=== PATIENT | female | born 1980 | race Caucasian/White ===

== ENCOUNTER 2016-12-06 07:14 | Emergency (ER) ==
[2016-12-06 07:24] VITALS: BP 152/102
--- NOTE | 2016-12-06 08:34 | Diag Imaging Result Document ---
PROCEDURE NAME: KUB ABDOMEN - 12/06/2016 KUB: INDICATION: Pain. COMPARISON: 04/11/2015. FINDINGS: There are faint radiopacities projecting over the right kidney. There is a right lower quadrant ostomy. No evidence for bowel obstruction. The left pelvic calcifications and left mid abdominal calcification are no longer present. IMPRESSION: Right nephrolithiasis.
[2016-12-06 08:39] LABS: URINE CULTURE PL NEEDED? NO; URINE SOURCE CLEAN CATCH
[2016-12-06 08:45] LABS: BILIRUBIN URINE NEGATIVE (NEGATIVE); CLARITY SLIGHTLY CLOUDY (CLEAR); COLOR YELLOW; GLUCOSE URINE NEGATIVE (NEGATIVE); URINE EPITHELIAL CELLS <10 /HPF (<10); URINE RBC 20-40 /HPF (<10); URINE WBC <10 /HPF (<10)
[2016-12-06 08:46] LABS: BLOOD URINE 4+ (NEGATIVE); LEUKOCYTES URINE 1+ (NEGATIVE); NITRITE URINE NEGATIVE (NEGATIVE); PROTEIN URINE TRACE mg/dL (NEGATIVE); SP GRAVITY URINE 1.025; UROBILINOGEN URINE NORMAL
[2016-12-06 08:47] LABS: MANUAL DIFF NEEDED? NO
[2016-12-06 08:49] LABS: BASO% 0.2 % (0.0-0.8); EOS# 0.07 X1000 (0.0-0.7); EOS% 0.7 % (0.0-10.0); HEMATOCRIT 35.8 % (37.0-47.0); HEMOGLOBIN 12.3 g/dL (12.0-16.0); IMM GRAN# 0.02 X1000 (0.0-0.04); IMM GRAN% 0.2 % (0.0-0.5); LYMPH# 1.02 X1000 (1.2-3.4); LYMPH% 9.9 % (20.5-51.1); MCH 31.6 PG (27-31); MCHC 34.4 g/dL (33-37); MONO# 0.57 X1000 (0.11-0.59); MONO% 5.5 % (1.7-9.3); MPV 10.5 FL (7.4-10.4); NEUT% 83.5 % (42.2-75.2); PLT 129 X1000 (130-400); RBC 3.89 XMIL (4.2-5.4)
[2016-12-06 09:11] LABS: AGAP 16; AMYLASE 64 U/L (20-200); BUN 19 mg/dL (8-22); CALCIUM 9.4 mg/dL (8.8-10.2); CHLORIDE 100 mmol/L (98-107); COSMO 273; GOT 25 U/L (10-30); LIPASE 21 U/L (13-60); POTASSIUM 3.9 mmol/L (3.5-5.1); SODIUM 135 mmol/L (136-145); TCO2 20 mmol/L (25-35); TOTAL PROTEIN 7.7 g/dL (6.3-8.3)
[2016-12-06 09:36] LABS: ALBUMIN 4.3 g/dL (3.5-5.0); ALKALINE PHOSPHATASE 115 U/L (32-104); GPT 16 U/L (10-36)
--- NOTE | 2016-12-06 09:55 | PROVIDER DOCUMENTATION ---
HPI-Abdominal Pain/GI Problem - General Source: patient - History of Present Illness-ABD Nature of Presenting Problems: Pt is 36 y/o F presents to the ED with abdominal pain. Pt states she has Crohn' s disease. Pt states she is not suppose to eat nuts and she did. Pt states having cramping this am. Pt states N/V Abdominal Pain Onset Location: reports: generalized abdomen Pain Radiation: reports: no radiation Quality of Pain: reports: aching Onset/Duration: reports: this morning Timing: reports: still present, intermittent Activities at Onset: reports: light activity Exposure to sick contacts?: No Modifying Factors: improves with: nothing Associated Symptoms: reports: nausea, vomiting. denies: anxiety, arm pain, back /neck pain, chest pain, constipation, cough, diaphoresis, diarrhea, dizziness, EENT symptoms, fatigue, fever/chills, genitourinary problems, headaches, heartburn, joint pain, loss of appetite, malaise, muscle aches, sinus congestion /drainage, rash, seizure, shortness of breath, sensory/motor loss, pain with inspiration, swelling/mass in abdomen, syncope, weakness, trouble walking Last BM: unsure Dark Stools Present?: reports: none noticed Rectal Bleeding: reports: none Rectal Pain: reports: none # of Vomiting Episodes: 4 Emesis Description: reports: clear Bruising or Bleeding Gums?: No Similar Symptoms Previously?: Yes Recently seen or treated by another doctor?: No <Vika Cintron - Last Filed: 12/06/16 09:51> <Arnlufo Mathews I - Last Filed: 12/06/16 09:57> - General Chief Complaint: Abdominal Pain Stated Complaint: BOWEL OBSTRUCTION Time Seen by Provider: 12/06/16 07:50 Allergies/Adverse Reactions: Patient Allergies Allergy/AdvReac Type Severity Reaction Status Date / Time amoxicillin [Amoxicillin] Allergy Intermediate NAUSEA/VOMI Verified 12/06/16 07: 21 TING amoxicillin trihydrate * Allergy Intermediate NAUSEA/VOMI Verified 12/06/16 07: 21 [From Augmentin] TING potassium clavulanate * Allergy Intermediate NAUSEA/VOMI Verified 12/06/16 07:21 [From Augmentin] TING diphenhydramine HCl * Allergy Unknown Verified 12/06/16 07:21 [From Benadryl] levofloxacin [From Levaquin] Allergy HIVES Verified 12/06/16 07:21 Home Medications: Home Medication List Medication Instructions Recorded Confirmed Last Taken Type Escitalopram [Lexapro] 20 mg PO QHS 08/08/13 12/06/16 09/25/15 22:30 History Trazodone [Desyrel] 150 mg PO QHS 08/08/13 12/06/16 09/25/15 22:30 History Review of Systems - Adult - REVIEW OF SYSTEMS - ADULT Constitutional: denies: chills, fever Eyes: denies: blurred vision, double vision, eye pain Ears, Nose, Mouth & Throat: denies: ear pain, nose pain, throat pain Cardiovascular: denies: chest pain, heart murmur, irregular heart rate Respiratory: denies: cough, dyspnea on exertion, shortness of breath, wheezing Gastrointestinal: reports: abdominal pain, nausea, vomiting. denies: diarrhea Genitourinary: denies: dysuria, hematuria Musculoskeletal: denies: bone pain, joint pain, neck pain Integumentary: denies: hives, itching Neurological: denies: dizziness/vertigo, headache/migraines Psychiatric: reports: no symptoms reported Endocrine: reports: no symptoms reported Hematologic/Lymphatic: reports: no symptoms reported Allergic/Immunologic: reports: no symptoms reported All Other Systems: Reviewed and Negative <Vika Cintron - Sanjay Filed: 12/06/16 09:51> Past History - Adult - PAST MEDICAL HISTORY-ADULT Review of Records: reports: Nursing Assessment Review, Medications Reviewed, Social history reviewed & non-contributory. Major Childhood Illnesses: reports: denies history Cardiovascular: reports: denies history Respiratory: reports: denies history Gastrointestinal: reports: Crohn's, inflammatory bowel disease Obstetrical/Gynecological: reports: denies history Genitourinary: reports: kidney stones Musculoskeletal: reports: denies history Neurological: reports: denies history Psychiatric: reports: anxiety, depression Endocrine/Immune: reports: denies history Other Conditions: reports: denies history - PRIOR SURGERIES/PROCEDURES Surgical/Procedure History: reports: , other (lithotripsy, ileostomy) - IMMUNIZATION STATUS Childhood Immunizations: See Nurse Assessment Flu Vaccine: See Nurse Assessment - FAMILY HISTORY Family History: reviewed, not pertinent - SOCIAL HISTORY Smoking: denies Substance Use: denies Living Situation: family <Vika Cintron Filed: 12/06/16 09:51> Physical Exam-General - PHYSICAL EXAM-ADULT Initial Vital Signs Reviewed: Yes - CONSTITUTIONAL General Appearance: appears well, alert, no apparent distress - EYES Eyes: PERRL/EOMI, pink conjunctivae, fundi clear, no AV nicking - HEAD, EARS, NOSE, MOUTH & THROAT HENMT: normocephalic/atraumatic, moist mucous membranes, normal ENT inspection, TMs normal, pharynx normal - NECK Neck: non-tender, full range of motion, supple, normal inspection - RESPIRATORY Respiratory: chest non-tender, lungs clear, normal breath sounds, no pleuratic chest pain, no respiratory distress, no accessory muscle use - CARDIOVASCULAR Cardiovascular: normal peripheral pulses, regular rate, rhythm, no edema, no gallop, no JVD, no murmur - GASTROINTESTINAL (ABDOMEN) Abdominal Exam: normal bowel sounds, soft, no organomegaly, no pulsatile mass, tenderness, other (colostomy in place) - LYMPHATIC Lymphatic: no adenopathy - MUSCULOSKELETAL Back Exam: normal inspection, no CVA tenderness, no vertebral tenderness Extremity: normal range of motion, non-tender, normal gait, normal inspection, no pedal edema, no calf tenderness, normal capillary refill, pelvis stable - SKIN Integumentary: normal color, normal turgor, warm/dry - NEUROLOGIC Neurologic: grossly normal - PSYCHIATRIC Psych/Mental Status: normal mood/affect, oriented x 3 <Vika Cintron - Last Filed: 12/06/16 09:51> Progress - PLAN OF CARE/RESULTS Progress/Plan/Lab Results: Laboratory Tests 12/06/16 12/06/16 12/06/16 07:50 07:50 08:30 WBC RBC Hgb Hct MCV MCH MCHC RDW Std Deviation Plt Count MPV Immature Gran % (Auto) Neut % (Auto) Lymph % (Auto) [place] % (Auto) Eos % (Auto) Baso % (Auto) Immature Gran # (Auto) Neut # (Auto) Lymph # (Auto) [place] # (Auto) Eos # (Auto) Baso # (Auto) Sodium 135 L Potassium 3.9 Chloride 100 Carbon Dioxide 20 L Anion Gap 16 BUN 19 Creatinine 0.7 Estimated GFR/1.73 m2 > 60 BUN/Creatinine Ratio 27 Glucose 114 H Calculated Osmolality 273 Calcium 9.4 Total Bilirubin 0.50 AST 25 ALT 16 Alkaline Phosphatase 115 H Total Protein 7.7 Albumin 4.3 Amylase 64 Lipase 21 Urine Source Cancelled CLEAN CATCH Urine Color Cancelled YELLOW Urine Clarity SLIGHTLY CLOUDY A Urine Turbidity Cancelled Urine pH Cancelled 6.0 Ur Specific [place] Cancelled 1.025 Urine Protein Cancelled TRACE A Ur Glucose (Stick) Cancelled Urine Ketones NEGATIVE Ur Ketones (Stick) Cancelled Urine Blood Cancelled 4+ Urine Nitrite Cancelled NEGATIVE Urine Bilirubin Cancelled NEGATIVE Urine Urobilinogen NORMAL Urobilinogen Dipstick Cancelled Urine Leukocytes Cancelled Urine WBC (Auto) Cancelled Urine RBC (Auto) Cancelled U Epithel Cells (Auto) Cancelled Urine Bacteria (Auto) Cancelled Urine Microscopic RBC 20-40 A Urine WBC 1+ A Urine Microscopic WBC <10 Ur Epithelial Cells <10 Urine Glucose NEGATIVE 12/06/16 08:30 WBC 10.35 RBC 3.89 L Hgb 12.3 Hct 35.8 L MCV 92.0 MCH 31.6 H MCHC 34.4 RDW Std Deviation 12.6 Plt Count 129 L MPV 10.5 H Immature Gran % (Auto) 0.2 Neut % (Auto) 83.5 H Lymph % (Auto) 9.9 L [place] % (Auto) 5.5 Eos % (Auto) 0.7 Baso % (Auto) 0.2 Immature Gran # (Auto) 0.02 Neut # (Auto) 8.65 H Lymph # (Auto) 1.02 L [place] # (Auto) 0.57 Eos # (Auto) 0.07 Baso # (Auto) 0.02 Sodium Potassium Chloride Carbon Dioxide Anion Gap BUN Creatinine Estimated GFR/1.73 m2 BUN/Creatinine Ratio Glucose Calculated Osmolality Calcium Total Bilirubin AST ALT Alkaline Phosphatase Total Protein Albumin Amylase Lipase Urine Source Urine Color Urine Clarity Urine Turbidity Urine pH Ur Specific [place] Urine Protein Ur Glucose (Stick) Urine Ketones Ur Ketones (Stick) Urine Blood Urine Nitrite Urine Bilirubin Urine Urobilinogen Urobilinogen Dipstick Urine Leukocytes Urine WBC (Auto) Urine RBC (Auto) U Epithel Cells (Auto) Urine Bacteria (Auto) Urine Microscopic RBC Urine WBC Urine Microscopic WBC Ur Epithelial Cells Urine Glucose Orders Category Date Time Status Saline Loc DIRECTED Care 12/06/16 07:51 Active NPO Diet 12/06/16 07:51 Active KUB ABDOMEN [RAD] Stat Exams 12/06/16 07:52 Draft AMYLASE [CHEM] Stat Lab 12/06/16 08:30 Results CBC WITH ELECTRONIC DIFF [HEME] Stat Lab 12/06/16 08:30 Completed COMPREHENSIVE METABOLIC PANEL [CHEM] Stat Lab 12/06/16 08:30 Results LIPASE [CHEM] Stat Lab 12/06/16 08:[address] W/POSS RFLX CULT [URINALYSIS] Stat Lab 12/06/16 07:50 Completed Vital Signs - 24 hr 12/06/16 07:18 Temperature 97.6 F Pulse Rate 83 Respiratory 17 Rate Blood Pressure 152/102 O2 Sat by Pulse 98 Oximetry - XRAY 1 XRAY: Bilateral XRAY Study: Abdomen Impression: Normal XRAY Interpretation: right nephrolithiasis <Vika Cintron - Last Filed: 12/06/16 09:51> Departure <Vika Cintron - Last Filed: 12/06/16 09:51> - Departure Time of Disposition Order: 09:56 Certified Medical Emergency: Emergent <Arnulfo Mathews I - Last Filed: 12/06/16 09:57> - Departure DIAGNOSIS: Kidney stone, Abdominal pain Disposition: HOME 01 Condition: Stable Referrals: Norm Leonard MD [Primary Care Provider] - Attestation - Scribe Verification/Attestation Scribe:: Vika Cintron Acting as Scribe for:: Arnulfo Mathews Scribe documention review:: This chart was documented by a scribe and accurately reflects the service the provider performed and the decisions made by the provider. <Vika Cintron - Last Filed: 12/06/16 09:51> - Scribe Verification/Attestation Scribe:: Arnulfo Mathews I Scribtong documention review:: This chart was documented by a scribe and accurately reflects the service the provider performed and the decisions made by the provider. - Physician/ MEREDITH Attestation Patient care was provided by Advanced Practice Provider:: Yes Advanced Practice Provider documentation review:: The Mid-level provider documentation, treatment plan and medical decision making was reviewed by the physician who agrees with all treatment and medical decision making by the MLP. The physician spent face to face time with patient:: Yes Advanced Practice Provider documentation review:: The physician spent face to face time with this patient and agrees with all MLP documentation, treatment, and medical decision making by the MLP. See provider notes for further information. <Arnulfo Mathews I - Last Filed: 12/06/16 09:57> Physician Attestation - Physician Attestation I, the provider, attest to the following statement:: Arnulfo Mathews Physician documentation Attestation:: This documentation recorded by the scribe accurately reflects the service I personally performed and the decisions made by me. <Arnulfo Mathews I - Last Filed: 12/06/16 09:57>
== END 2016-12-06 10:06 | disposition home or self-care (01) ==
LOC: P.ED 07:14
DX: N20.0 Calculus of kidney (principal); R10.84 Generalized abdominal pain; R11.2 Nausea with vomiting, unspecified; K50.90 Crohn's disease, unspecified, without complications; Z87.442 Personal history of urinary calculi; F41.9 Anxiety disorder, unspecified; F32.9 Major depressive disorder, single episode, unspecified; Z93.2 Ileostomy status; Z79.899 Other long term (current) drug therapy
CPT/HCPCS: 74000; 80053; 81001; 82150; 83690; 85025; 99283